=== PATIENT | female | born 1935 | race Caucasian/White ===

== ENCOUNTER 2019-04-12 12:23 | Emergency (ER) | payer MEDICARE, OTHER ==
[~2019-04-12] VITALS: Ht 167.6 cm; Wt 70.5 kg
--- NOTE | 2019-04-12 12:54 | NUR ---
Patient ambulated to pina bed 7 from [facility] with steady gait, daughter at bedside. Patient declined blanket at this time.
[2019-04-12] MEDS ORDERED: LIDOcaine 1% w/epiNEPHrine 1:200,000 30ml vial IM ONE (13:45)
[2019-04-12] MEDS ORDERED: TETanus/Pertussis (Acell)/Diphther VAC/PF (Tdap-Adult) 0.5ml syringe IM ONE (13:45)
--- NOTE | 2019-04-12 14:12 | NUR ---
Genevieve at bedside, performing I&D at bedside. Patient tolerating well.
[2019-04-12] MEDS ORDERED: SULF1TAB49 PO (14:21)
[2019-04-12] MEDS ORDERED: CEPH500C5 PO (14:21)
[2019-04-12 14:47] VITALS: BP 125/44
== END 2019-04-12 14:48 | disposition home or self-care (01) ==
LOC: ER 12:24
DX: S60.821A Blister (nonthermal) of right wrist, initial encounter (principal); L03.113 Cellulitis of right upper limb; X58.XXXA Exposure to other specified factors, initial encounter; Y93.89 Activity, other specified; Y92.89 Other specified places as the place of occurrence of the external cause; Y99.8 Other external cause status
CPT/HCPCS: 10060; 87070; 87077; 87186; 90471; 99283

== ENCOUNTER 2020-05-08 15:49 | Day surgery (SDC) | payer MEDICARE, OTHER ==
[~2020-05-08] VITALS: Ht 167.6 cm; Wt 72.7 kg
[2020-05-08 16:00] VITALS: BP 154/83
[2020-05-08] MEDS ORDERED: LIDOcaine 1% (10mg/ml)w/preservative injection 20ml MDV ONE ×2 (16:16→18:14)
[2020-05-08] MEDS ORDERED: iohexol 350 MG/1 ML 200ml bottle ONE (16:16)
[2020-05-08] MEDS ORDERED: OMEP20TA5 PO (16:22)
[2020-05-08] MEDS ORDERED: ATOR40TA72 PO (16:22)
[2020-05-08] MEDS ORDERED: METF-438 PO (16:22)
[2020-05-08] MEDS ORDERED: TRAZ-251 PO (16:22)
[2020-05-08] MEDS ORDERED: CLOP75TA35 PO (16:22)
[2020-05-08] MEDS ORDERED: OMEG-165 PO (16:22)
[2020-05-08] MEDS ORDERED: DULO30CA52 PO (16:22)
[2020-05-08] MEDS ORDERED: GLIP10TA21 PO (16:22)
[2020-05-08] MEDS ORDERED: MAGN400C PO (16:25)
[2020-05-08] MEDS ORDERED: ASPI-611 PO (16:25)
[2020-05-08] MEDS ORDERED: CALC-723 PO (16:25)
[2020-05-08] MEDS ORDERED: MELA5TAB12 PO (16:25)
[2020-05-08] MEDS ORDERED: MULT-1085 PO (16:25)
[2020-05-08] MEDS ORDERED: OCUVITE PO (16:25)
[2020-05-08] MEDS ORDERED: ALBU18HF2 INH (16:27)
[2020-05-08] MEDS ORDERED: heparin 1,000 UNITS/NS 500ml 500 ML ONE (16:29)
[2020-05-08] MEDS ORDERED: normal saline 1,000 ML IV SCH (17:55)
[2020-05-08] MEDS ORDERED: diphenhydrAMINE 25mg capsule PO PRN (17:55)
[2020-05-08] MEDS ORDERED: LORazepam 0.5 MG tablet PO PRN (17:55)
[2020-05-08] MEDS ORDERED: phenylephrine 10mg/ml inj. ONE (18:03)
[2020-05-08] MEDS ORDERED: DOPamine 400mg/D5W 250ml 250 ML IV ONE (18:05)
[2020-05-08] MEDS ORDERED: fentaNYL/PF 50MCG/1 ML 2ML syringe ONE (18:16)
[2020-05-08] MEDS ORDERED: atropine 0.1mg/ml 10ml syringe ONE (18:18)
[2020-05-08 19:00] VITALS: BP 150/58
[2020-05-08] MEDS ORDERED: proCHLORperazine 10 MG/2 ml inj IV PRN (19:10)
[2020-05-08] MEDS ORDERED: OXAZEpam 15mg capsule PO PRN (19:10)
[2020-05-08 19:15] VITALS: BP 169/71
[2020-05-08 19:30] VITALS: BP 154/64
[2020-05-08 19:45] VITALS: BP 141/61
== END 2020-05-08 20:10 | disposition home or self-care (01) ==
LOC: SSTAY O 15:49
PROVIDERS: ATTEND Internal Medicine Interventional Cardiology
DX: I65.23 Occlusion and stenosis of bilateral carotid arteries (principal); E11.9 Type 2 diabetes mellitus without complications; I50.9 Heart failure, unspecified; M19.90 Unspecified osteoarthritis, unspecified site; I47.1 Supraventricular tachycardia; E87.5 Hyperkalemia; Z79.899 Other long term (current) drug therapy; Z79.82 Long term (current) use of aspirin; Z79.01 Long term (current) use of anticoagulants; Z79.84 Long term (current) use of oral hypoglycemic drugs; Z85.3 Personal history of malignant neoplasm of breast; Z88.2 Allergy status to sulfonamides
CPT/HCPCS: 36222; 82948; 99152; 99153; C1760; C1769; C1894; J0461; J1265; J1644; J2001; J2370; J3010; Q9967; 93005; A4620

== ENCOUNTER 2021-08-06 10:00 | Day surgery (SDC) | payer MEDICARE, OTHER ==
[~2021-08-06] VITALS: Ht 167.6 cm; Wt 70.5 kg
[~2021-08-06 10:00] MED LIST: ALBU18HF2 INH; ASPI-611 PO; ATOR40TA72 PO; CALC-723 PO; CLOP75TA34 PO; DULO30CA52 PO; GLIP10TA21 PO; MAGN400C PO; MELA5TAB12 PO; METF-438 PO; MULT-1085 PO; OCUVITE PO; OMEG-165 PO; OMEP20TA5 PO; TRAZ-251 PO
[2021-08-06] MEDS ORDERED: LIDOcaine Viscous 15ml cup ONE (10:03)
[2021-08-06] MEDS ORDERED: fentaNYL/PF 50MCG/1 ML 2ML syringe ONE (10:03)
[2021-08-06] MEDS ORDERED: MIDAZolam 1 MG/ML 5ML VIAL ONE (10:03)
[2021-08-06 10:35] VITALS: BP 140/60
[2021-08-06] MEDS ORDERED: BETA1TAB18 PO (11:03)
[2021-08-06] MEDS ORDERED: HYLANDS PO (11:03)
[2021-08-06] MEDS ORDERED: DULO-31 PO (11:03)
[2021-08-06 12:01] VITALS: BP 139/64
[2021-08-06 12:11] VITALS: BP 103/63
[2021-08-06 12:21] VITALS: BP 121/60
[2021-08-06 12:31] VITALS: BP 121/38
== END 2021-08-06 12:55 | disposition home or self-care (01) ==
LOC: GI LAB 10:00
PROVIDERS: ATTEND Internal Medicine Gastroenterology
DX: R11.2 Nausea with vomiting, unspecified (principal); D50.9 Iron deficiency anemia, unspecified; K29.50 Unspecified chronic gastritis without bleeding; K29.80 Duodenitis without bleeding; K44.9 Diaphragmatic hernia without obstruction or gangrene; I10 Essential (primary) hypertension; E11.9 Type 2 diabetes mellitus without complications; Z79.899 Other long term (current) drug therapy; Z79.84 Long term (current) use of oral hypoglycemic drugs
CPT/HCPCS: 43239; G0500; J2250; J3010; J7040; Z7512; 88305; 88342; 99152; A4620